=== PATIENT | female | born 1995 | race African-American/Black ===

== ENCOUNTER 2019-09-08 05:00 | Emergency (ER) | payer BC ==
--- NOTE | 2019-09-08 05:24 | EDM.PDOC ---
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 No paper hospital chart available.) History Limitations: Reports: No Limitations - History of Present Illness INITIAL COMMENTS - FREE TEXT/NARRATIVE: The patient was brought to the emergency room via private automobile by her 2 sisters for evaluation of severe pelvic/abdominal cramping consistent with labor. Uterine contractions were about 2-4 minutes apart prior to arrival and started at about 11 PM this evening. She denies any recent intercourse, pelvic injury, etc. with EDC of 01/10/20 both by LMP and OB ultrasound. She has not had any problems with this , including hyperglycemia, hypertension, etc.. The patient did have a fever of about 100 yesterday and was evaluated by the [facility] in [place] with apparent negative influenza and UA evaluations in that facility by her history. She has not had a fever since that time or taken any medications with no known exposure to infection. She denies any gross hematuria, colic, or other UTI symptoms. No recent history of other abdominal pain, heartburn, nausea, diarrhea, melena, gross hematochezia, or any food intolerance, including fatty foods, etc.. The patient also denies any recent cough, wheezing, dyspnea, etc.. Onset: Gradual Onset Date: 09/07/19 Onset Time: 23:00 Duration: Intermittent Location: Reports: Abdomen, Pelvis. Denies: Head, Face, Neck, Chest, Back, Radiates to Quality: Reports: Pressure, Stabbing Severity: Severe Improves with: Reports: None Worsens with: Reports: None Context: Reports: Other (As above). Denies: Sick Contact, Trauma Associated Symptoms: Reports: Fever/Chills (As above). 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 Denies: Arrhythmia, Heart Murmur, Hypertension SPECIAL CERTIFICATE DICTATOR History: Reports: : 1 Para: 0 LMP (Approximate): (Gestational age of 22 2/7 weeks with EDC of as above) Endocrine/Metabolic History: Reports: None. Denies: Diabetes, Gestational, Diabetes, Type II, Hypothyroidism, IDDM - Past Imaging History Past Imaging History: Reports: Ultrasound (Last OB ultrasound on 07/24/19.) Social & Family History - Tobacco Use Smoking Status *Q: Former Smoker Tobacco Use Within Last Twelve Months: Cigarettes Years of Tobacco use: 7 Packs/Tins Daily: 0.5 Packs/Tins Daily Comment: Started smoking at age 16. Stop smoking after discovery of her . Used Tobacco, but Quit: Yes Smoking Cessation Information Provided To Patient: No - Alcohol Use Alcohol Use History: Yes Number of Drinks Per Day Comment: Stop alcohol use in early after discovering she was . Alcohol Use in Last Twelve Months: Yes - Recreational Drug Use Recreational Drug Use: No Drug Use in Last 12 Months: No - Living Situation & Occupation Living situation: Reports: with Significant Other Occupation: Employed ([employer]) ED ROS GENERAL - Review of Systems Review Of Systems: Comprehensive ROS is negative, except as noted in HPI. ED EXAM - Physical Exam Exam: See Below Exam Limited By: No Limitations General Appearance: Alert, WD/WN, No Apparent Distress, Anxious (Moderate) Head: Atraumatic, Normocephalic. No: Facial Swelling, Facial Tenderness, Sinus Tenderness Neck: Normal Inspection, Supple, Non-Tender, Full Range of Motion. No: Lymphadenopathy (L), Lymphadenopathy (R), Thyromegaly Respiratory/Chest: No Respiratory Distress, Lungs Clear, Normal Breath Sounds, No Accessory Muscle Use, Chest Non-Tender. No: Pleural Rub, Retractions Cardiovascular: Normal Peripheral Pulses, Regular Rate, Rhythm, No Edema, No Gallop, No JVD, No Murmur, No Rub. No: Gallop/S3, Gallop/S4, Friction Rub GI/Abdominal Exam: Normal Bowel Sounds, Soft, Non-Tender, No Organomegaly, No Distention, No Abnormal Bruit, No Mass, Pelvis Stable Fundal Height In cm: 22 Rectal Exam: Deferred (Female) Exam: Cervical Dilatation (100%), Cervical Fluid (Amniotic fluid in vaginal vault with no meconium), Enlarged Uterus (Consistent with dates), Vaginal Discharge (Normal with some mild spotting), Other (Vertex, 0 station). No: Adnexal Mass (L), Adnexal Mass (R), Adnexal Tenderness, Cervical Lesions, Cervix Motion Tenderness, Uterine Tenderness Heart Tones: Present Heart Tones per Min: 154 Movement: Active Back Exam: Normal Inspection, Full Range of Motion. No: CVA Tenderness (L), CVA Tenderness (R), Muscle Spasm Extremities: Normal Inspection, Normal Range of Motion, Non-Tender, No Pedal Edema, Normal Capillary Refill. No: Owen's Sign Neurological: Alert, Oriented, CN II-XII Intact, Normal Cognition, Normal Gait, Normal Reflexes, No Motor/Sensory Deficits Psychiatric: Anxious (Moderate). No: Depressed Mood Skin Exam: Warm, Dry, Intact, Normal Color, No Rash, Stud(s) (Right nasal ). No : Diaphoretic Lymphatic: No Adenopathy Course - Vital Signs Text/Narrative:: Vital Signs - 24 hr 09/08/19 09/08/19 09/08/19 05:07 06:15 06:30 Temperature [ 37.1 C Temporal] Pulse, 85 85 86 Peripheral [ Right Pulse Oximetry] Respiratory 12 12 12 Rate Blood Pressure 135/76 114/72 114/72 [Right Upper Arm] O2 Sat by Pulse 98 95 96 Oximetry 09/08/19 09/08/19 09/08/19 06:55 07:11 07:48 Temperature [ 36.7 C 36.6 C Temporal] Pulse, 86 85 105 H Peripheral [ Right Pulse Oximetry] Respiratory 12 12 18 Rate Blood Pressure 109/76 107/69 122/81 [Right Upper Arm] O2 Sat by Pulse 93 L 98 98 Oximetry Last Recorded V/S: Last Vital Signs Temp 36.6 C 09/08/19 07:48 Pulse 105 H 09/08/19 07:48 Resp 18 09/08/19 07:48 BP 122/81 09/08/19 07:48 Pulse Ox 98 09/08/19 07:48 Vital Signs - 24 hr 09/08/19 09/08/19 09/08/19 05:07 06:15 06:30 Temperature [ 37.1 C Temporal] Pulse, 85 85 86 Peripheral [ Right Pulse Oximetry] Respiratory 12 12 12 Rate Blood Pressure 135/76 114/72 114/72 [Right Upper Arm] O2 Sat by Pulse 98 95 96 Oximetry 09/08/19 09/08/19 09/08/19 06:55 07:11 07:48 Temperature [ 36.7 C 36.6 C Temporal] Pulse, 86 85 105 H Peripheral [ Right Pulse Oximetry] Respiratory 12 12 18 Rate Blood Pressure 109/76 107/69 122/81 [Right Upper Arm] O2 Sat by Pulse 93 L 98 98 Oximetry - Orders/Labs/Meds Orders: Active Orders 24 hr Category Date Time Status Peripheral IV Care [RC] . DIRECTED Care 09/08/19 05:25 Active GENITAL CULTURE [MREF] Stat Lab 09/08/19 05:45 Received Magnesium Sulfate/Water [Magnesium Sulfate in Water Med 09/08/19 07:45 Ordered Premix] 20 gm in 500 ml IV TITRATE Magnesium Sulfate/Water [Magnesium Sulfate in Water Med 09/08/19 08:35 Ordered Premix] 2 gm Premix Bag 1 bag IV ONETIME Sodium Chloride 0.9% [Saline Flush] Med 09/08/19 05:25 Active 10 ml FLUSH ASDIRECTED PRN Heart Monitor External [WOMSER] Stat Oth 09/08/19 05:25 Ordered Peripheral IV Insertion Adult [OM.PC] Routine Oth 09/08/19 05:25 Ordered Medication Orders Magnesium Sulfate (Magnesium Sulfate In Water Premix) 20 gm in 500 mls @ 50 mls /hr IV TITRATE SUNDAY Magnesium Sulfate 2 gm/ Premix 50 mls @ 50 mls/hr IV ONETIME ONE Stop: 09/08/19 09:34 Sodium Chloride (Saline Flush) 10 ml FLUSH ASDIRECTED PRN PRN Reason: Keep Vein Open Last Admin: 09/08/19 07:45 Dose: 10 ml Admin: 09/08/19 06:14 Dose: 10 ml Labs: Laboratory Tests 09/08/19 09/08/19 09/08/19 Range/Units 06:15 06:15 06:15 WBC 23.2 H (4.0-10.2) K/uL RBC 3.97 (3.77-5.09) M/uL Hgb 11.5 L (11.7-15.5) g/dL Hct 34.8 (34.0-46.0) % MCV 87.7 (84.0-98.0) fL MCH 29.0 (28.2-33.3) pg MCHC 33.0 (31.7-36.0) g/dL RDW 12.9 (11.2-14.1) % Plt Count 201 (150-350) K/uL Neut % (Auto) 84.5 H (45.0-80.0) % Lymph % (Auto) 7.5 L (10.0-50.0) % Sanborn % (Auto) 7.4 (2.0-14.0) % Eos % (Auto) 0.5 (0.0-5.0) % Baso % (Auto) 0.1 (0.0-2.0) % Neut # (Auto) 19.61 H (1.40-7.00) K/uL Lymph # (Auto) 1.75 (0.50-3.50) K/uL Sanborn # (Auto) 1.71 H (0.00-1.00) K/uL Eos # (Auto) 0.11 (0.00-0.50) K/uL Baso # (Auto) 0.02 (0.00-0.20) K/uL Sodium 136 (136-145) mmol/L Potassium 3.8 (3.5-5.1) mmol/L Chloride 104 (98-107) mmol/L Carbon Dioxide 19.7 L (21.0-32.0) mmol/L BUN 7 (7-18) mg/dL Creatinine 0.58 (0.51-1.17) mg/dL Est Cr Clr Drug Dosing TNP Estimated GFR (MDRD) > 60 mL/min Glucose 84 (74-106) mg/dL Calcium 9.0 (8.5-10.1) mg/dL Magnesium 1.5 L (1.8-2.4) mg/dL Total Bilirubin 0.2 (0.2-1.0) mg/dL AST 13 L (15-37) U/L ALT 13 (12-78) U/L Alkaline Phosphatase 72 (46-116) IU/L Total Protein 7.5 (6.4-8.2) g/dL Albumin 2.6 L (3.4-5.0) g/dL TSH, Ultra Sensitive (0.358-3.740) mIU/mL HCG, Quant mIU/mL Blood Type B POSITIVE 09/08/19 Range/Units 06:15 WBC (4.0-10.2) K/uL RBC (3.77-5.09) M/uL Hgb (11.7-15.5) g/dL Hct (34.0-46.0) % MCV (84.0-98.0) fL MCH (28.2-33.3) pg MCHC (31.7-36.0) g/dL RDW (11.2-14.1) % Plt Count (150-350) K/uL Neut % (Auto) (45.0-80.0) % Lymph % (Auto) (10.0-50.0) % Sanborn % (Auto) (2.0-14.0) % Eos % (Auto) (0.0-5.0) % Baso % (Auto) (0.0-2.0) % Neut # (Auto) (1.40-7.00) K/uL Lymph # (Auto) (0.50-3.50) K/uL Sanborn # (Auto) (0.00-1.00) K/uL Eos # (Auto) (0.00-0.50) K/uL Baso # (Auto) (0.00-0.20) K/uL Sodium (136-145) mmol/L Potassium (3.5-5.1) mmol/L Chloride (98-107) mmol/L Carbon Dioxide (21.0-32.0) mmol/L BUN (7-18) mg/dL Creatinine (0.51-1.17) mg/dL Est Cr Clr Drug Dosing Estimated GFR (MDRD) mL/min Glucose (74-106) mg/dL Calcium (8.5-10.1) mg/dL Magnesium (1.8-2.4) mg/dL Total Bilirubin (0.2-1.0) mg/dL AST (15-37) U/L ALT (12-78) U/L Alkaline Phosphatase (46-116) IU/L Total Protein (6.4-8.2) g/dL Albumin (3.4-5.0) g/dL TSH, Ultra Sensitive 1.360 (0.358-3.740) mIU/mL HCG, Quant 6488 mIU/mL Blood Type Meds: Medications Generic Name Dose Route Start Last Admin Trade Name Freq PRN Reason Stop Dose Admin Magnesium Sulfate 20 gm in 500 mls @ 50 mls/hr 09/08/19 07:45 Magnesium Sulfate In Water Premix IV TITRATE SUNDAY Magnesium Sulfate 2 gm/ Premix 50 mls @ 50 mls/hr 09/08/19 08:35 IV 09/08/19 09:34 ONETIME ONE Sodium Chloride 10 ml 09/08/19 05:25 09/08/19 07:45 Saline Flush FLUSH 10 ml ASDIRECTED PRN Administration Keep Vein Open Discontinued Medications Generic Name Dose Route Start Last Admin Trade Name Freq PRN Reason Stop Dose Admin Ceftriaxone Sodium 2 gm 09/08/19 06:04 09/08/19 06:15 Rocephin IVPUSH 09/08/19 06:05 2 gm ONETIME ONE Administration Dexamethasone 6 mg 09/08/19 06:07 09/08/19 06:12 Dexamethasone IVPUSH 09/08/19 06:08 6 mg ONETIME ONE Administration Lactated Ringer's 1,000 mls @ 999 mls/hr 09/08/19 05:25 Ringers, Lactated IV 09/08/19 06:25 .BOLUS ONE Magnesium Sulfate 100 mls @ 100 mls/hr 09/08/19 05:52 09/08/19 06:34 Magnesium Sulfate In Water Premix IV 09/08/19 06:51 100 mls/hr ONETIME ONE Administration Magnesium Sulfate 2 gm/ Premix 50 mls @ 100 mls/hr 09/08/19 07:26 09/08/19 07 :36 IV 09/08/19 07:55 100 mls/hr ONETIME ONE Administration - Radiology Interpretation Free Text/Narrative:: heart tones average in the 150s with some difficulty maintaining continuous readings secondary to movement. Uterine contractions somewhat variable improved to every 10-12 minutes prior to arrival, although occasional persistent breakthrough uterine contractions. Departure - Departure Time of Disposition: 08:38 Disposition: DC/Tfer to [facility] 02 Condition: Serious Clinical Impression: Spontaneous rupture of amniotic membranes, Threatened , Hypomagnesemia , Hypoalbuminemia, Leukocytosis, Anemia - Discharge Information *PRESCRIPTION DRUG MONITORING PROGRAM REVIEWED*: Not Applicable *COPY OF PRESCRIPTION DRUG MONITORING REPORT IN PATIENT SORAIDA: Not Applicable Forms: ED Department Discharge, Interfacility Transfer DIEGO Sepsis Event Note - Evaluation Sepsis Screening Result: No Definite Risk - Focused Exam Vital Signs: Vital Signs Temp Pulse Resp BP Pulse Ox 09/08/19 07:48 36.6 C 105 H 18 122/81 98 09/08/19 07:11 85 12 107/69 98 09/08/19 06:55 36.7 C 86 12 109/76 93 L 09/08/19 06:30 86 12 114/72 96 09/08/19 06:15 85 12 114/72 95 09/08/19 05:07 37.1 C 85 12 135/76 98 Date Exam was Performed: 09/08/19 Time Exam was Performed: 08:38 - Problem List & Annotations (1) Threatened SNOMED Code(s): 33783813 Code(s): O20.0 - THREATENED Status: Acute Priority: High Onset Date: 09/07/19 Annotation/Comment:: Threatened versus extremely early delivery at 22 2/7 weeks gestation. Note that patient did not have any previous vaginal spotting, etc. prior to arrival to our facility, however shortly after arrival the patient had moderate spontaneous rupture of membranes documented by our ER nurses with additional mild vaginal spotting. Telephone consultation at 05:[address] Trevizo, SPECIAL CERTIFICATE DICTATOR at [facility], and then conference consultation by telephone with all providers at 05:[address] Crawford, military technology manager at the NICU at [facility]. Prognosis is extremely poor for the infant with initial estimation at 30% however recalculated at only 10% survival rate based on the weight, etc.. The patient and her 2 sisters were counseled extensively by me with the other 2 specialists above on the line concerning expected poor outcomes. They are requesting that full treatment measures be initiated. [facility] did try to initiate air transport of the patient to their facility, however secondary to poor weather conditions the NICU ambulance team was sent to this facility. Per recommendations of the above consulting physicians patient will receive 6 g IV of magnesium sulfate followed by 2 g per hour there after by IV infusion. They did recommend 5 million units of IV penicillin and 12 mg of IM betamethasone. Unfortunately, we do not have these medications in house. In lieu of the above medications patient was given 2 g of IV Rocephin by means of IV bolus, 6 mg of dexamethasone IV, and started on a 1 L IV bolus of lactated Ringer's. Pelvic exams were limited based on patient's clinical course in hopes of avoiding delivery in this facility. Subsequent telephone consultation at 07:[address] Crawford and Dr. Deleon, OB who is now on duty, discussing current treatment course and plan. Dr. Crawford did talk with the patient extensively once again concerning the poor prognosis of baby survival, however the patient and her family are still wishing to proceed with patient transfer. Subsequent telephone consultation with Rosalee Torres MD at [facility] in [place], who does agree to accompany the patient in a separate ambulance with boiling house hand accompaniment with the mother in case of early delivery. [facility] ambulance crew to follow behind our ambulance. Note that initial contact tractions of every 24 minutes did decrease to every 1012 minutes prior to transfer with magnesium sulfate therapy as above. Cervical exam immediately prior to patient transfer showed stable findings including 100% effacement, 10 cm dilatation, 0 station, and vertex position. Otherwise physical exam and vital signs stable at time of transfer. (2) Spontaneous rupture of amniotic membranes SNOMED Code(s): 798203777 Code(s): XRZ8953 - Status: Acute Priority: High Onset Date: 09/08/19 Annotation/Comment:: As above (3) Hypoalbuminemia SNOMED Code(s): 917329015 Code(s): E88.09 - [facility] DISORDERS OF PLASMA-PROTEIN METABOLISM, NEC Status: Acute Priority: Medium Onset Date: 09/08/19 Annotation/Comment:: Likely secondary to . Observe for now. Further treatment by accepting providers depending on her clinical course. (4) Hypomagnesemia SNOMED Code(s): 145443325 Code(s): E83.42 - HYPOMAGNESEMIA Status: Acute Priority: High Onset Date: 09/08/19 Annotation/Comment:: Magnesium sulfate initiated as above. (5) Anemia SNOMED Code(s): 549093753 Code(s): D64.9 - ANEMIA, UNSPECIFIED Status: Acute Priority: Medium Annotation/Comment:: Likely normal anemia of with no evidence of acute bleeding, etc. Qualifiers: Anemia type: other cause Other causes of anemia: other cause, not classified Qualified Code(s): D64.89 - Other specified anemias (6) Leukocytosis SNOMED Code(s): 261478565, 543324605 Code(s): D72.829 - ELEVATED WHITE BLOOD CELL COUNT, UNSPECIFIED Status: Acute Priority: High Onset Date: 09/08/19 Annotation/Comment:: Significant leukocytosis as above likely secondary to stress reaction and current /labor. No fever today, although note patient did have a fever with negative minimal workup yesterday at [facility] in [place] as above. IV Rocephin given as above. Continue to observe closely by accepting providers. Note that the patient is a difficult lab draw with insufficient specimen for lactic acid evaluation. No clinical evidence of sepsis, however. Qualifiers: Leukocytosis type: bandemia Qualified Code(s): D72.825 - Bandemia - Problem List Review Problem List Initiated/Reviewed/Updated: Yes - My Orders Last 24 Hours: My Active Orders 09/08/19 05:25 Peripheral IV Care [RC] . DIRECTED Sodium Chloride 0.9% [Saline Flush] 10 ml FLUSH ASDIRECTED PRN Heart Monitor External [WOMSER] Stat Peripheral IV Insertion Adult [OM.PC] Routine 09/08/19 05:45 GENITAL CULTURE [MREF] Stat 09/08/19 07:45 Magnesium Sulfate/Water [Magnesium Sulfate in Water Premix] 20 gm in 500 ml IV TITRATE 09/08/19 08:35 Magnesium Sulfate/Water [Magnesium Sulfate in Water Premix] 2 gm Premix Bag 1 bag IV ONETIME - Assessment/Plan Last 24 Hours: My Active Orders 09/08/19 05:25 Peripheral IV Care [RC] . DIRECTED Sodium Chloride 0.9% [Saline Flush] 10 ml FLUSH ASDIRECTED PRN Heart Monitor External [WOMSER] Stat Peripheral IV Insertion Adult [OM.PC] Routine 09/08/19 05:45 GENITAL CULTURE [MREF] Stat 09/08/19 07:45 Magnesium Sulfate/Water [Magnesium Sulfate in Water Premix] 20 gm in 500 ml IV TITRATE 09/08/19 08:35 Magnesium Sulfate/Water [Magnesium Sulfate in Water Premix] 2 gm Premix Bag 1 bag IV ONETIME Assessment:: As above Plan: As above. Extensive precautions were given to the patient and her family, who are in agreement with the treatment plan. Ambulance transfer with NICU team from [facility].
[2019-09-08] MEDS ORDERED: Lactated Ringers 1,000 ML IV ONE (05:25)
[2019-09-08] MEDS ORDERED: Magnesium Sulfate/Water 100 ML IV ONE (05:52)
[2019-09-08] MEDS ORDERED: cefTRIAXone 2 GM Vial IVPUSH ONE (06:04)
[2019-09-08] MEDS ORDERED: Dexamethasone 10 MG/ML SDV IVPUSH ONE (06:07)
[2019-09-08] MEDS: Sodium Chloride 0.9% 10 ML Syringe FLUSH PRN ×2 (06:14→07:45)
[2019-09-08 07:00] LABS: CHLORIDE,CL 104 mmol/L (98-107); SODIUM,NA 136 mmol/L (136-145)
[2019-09-08] MEDS ORDERED: Magnesium Sulfate/Water 2 GM in Premix Bag 1 BAG IV ONE ×2 (07:26→08:35)
[2019-09-08] MEDS ORDERED: Magnesium Sulfate/Water 20 GM/500 ML BAG IV SCH (07:45)
--- NOTE | 2019-09-08 12:50 | EDM.PDOC ---
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 EMR. No paper hospital chart available.) History Limitations: Reports: No Limitations - History of Present Illness INITIAL COMMENTS - FREE TEXT/NARRATIVE: The patient was brought to the emergency room via private automobile by her 2 sisters for evaluation of severe pelvic/abdominal cramping consistent with labor. Uterine contractions were about 2-4 minutes apart prior to arrival and started at about 11 PM this evening. She denies any recent intercourse, pelvic injury, etc. with EDC of 01/10/20 both by LMP and OB ultrasound. She has not had any problems with this , including hyperglycemia, hypertension, etc.. The patient did have a fever of about 100 yesterday and was evaluated by the [facility] in [place] with apparent negative influenza and UA evaluations in that facility by her history. She has not had a fever since that time or taken any medications with no known exposure to infection. She denies any gross hematuria, colic, or other UTI symptoms. No recent history of other abdominal pain, heartburn, nausea, diarrhea, melena, gross hematochezia, or any food intolerance, including fatty foods, etc.. The patient also denies any recent cough, wheezing, dyspnea, etc.. Onset: Gradual Onset Date: 09/07/19 Onset Time: 23:00 Duration: Intermittent Location: Reports: Abdomen, Pelvis. Denies: Head, Face, Neck, Chest, Back, Radiates to Quality: Reports: Pressure, Stabbing Severity: Severe Improves with: Reports: None Worsens with: Reports: None Context: Reports: Other (As above). Denies: Sick Contact, Trauma Associated Symptoms: Reports: Fever/Chills (As above). Denies: Confusion, Chest Pain, Cough, Diaphoresis, Headaches, Nausea/Vomiting, Rash, Seizure, Shortness of Breath, Weakness Treatments FINANCIAL FOUNDATIONS ASSOCIATE: Reports: Other (see below) (None) Pelvic Pain Score (Numeric/FACES): 10 - Related Data Allergies Allergy/AdvReac Type Severity Reaction Status Date / Time No Known Allergies Allergy Verified 09/08/19 05:05 Home Meds: Home Meds Acetaminophen [Tylenol] 650 mg PO Q4HR PRN 09/08/19 [History] Vits #93/Iron Fum/FA [ Formula Tablet] 1 each PO DAILY [History] Past Medical History Cardiovascular History: Reports: None. 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 Denies: Diabetes, Gestational, Diabetes, Type II, Hypothyroidism, IDDM - Past Imaging History Past Imaging History: Reports: Ultrasound (Last OB ultrasound on 07/24/19.) Social & Family History - Tobacco Use Smoking Status *Q: Former Smoker Years of Tobacco use: 7 Packs/Tins Daily: 0.5 Used Tobacco, but Quit: Yes Month/Year Tobacco Last Used: 06/2019 - Caffeine Use Caffeine Use: Reports: Coffee, Soda, Tea - Recreational Drug Use Recreational Drug Use: No Drug Use in Last 12 Months: No - Living Situation & Occupation Living situation: Reports: with Significant Other Occupation: Employed ([employer] ED ROS GENERAL - Review of Systems Review Of Systems: See Below Constitutional: Reports: No Symptoms HEENT: Reports: No Symptoms Respiratory: Reports: No Symptoms Cardiovascular: Reports: No Symptoms Endocrine: Reports: No Symptoms GI/Abdominal: Reports: No Symptoms : Reports: No Symptoms Musculoskeletal: Reports: No Symptoms Skin: Reports: No Symptoms Neurological: Reports: No Symptoms Psychiatric: Reports: No Symptoms Hematologic/Lymphatic: Reports: No Symptoms Immunologic: Reports: No Symptoms ED EXAM - Physical Exam Exam: See Below Exam Limited By: No Limitations General Appearance: Alert, Mild Distress Head: Normocephalic Respiratory/Chest: No Respiratory Distress Cardiovascular: Regular Rate, Rhythm Fundal Height In cm: 22 (Female) Exam: Other (per Dr. Chacon) Heart Tones: Present Heart Tones per Min: 171 Movement: Active Back Exam: Normal Inspection Extremities: Normal Inspection Neurological: Alert, Normal Cognition Psychiatric: Normal Affect, Anxious, Tearful (at times) Skin Exam: Warm, Dry, Intact, No Rash Course - Vital Signs Last Recorded V/S: Last Vital Signs Temp 97.9 F 09/08/19 07:48 Pulse 105 H 09/08/19 07:48 Resp 18 09/08/19 07:48 BP 122/81 09/08/19 07:48 Pulse Ox 98 09/08/19 07:48 - Orders/Labs/Meds Orders: Active Orders 24 hr Category Date Time Status Peripheral IV Care [RC] . DIRECTED Care 09/08/19 05:25 Active GENITAL CULTURE [MREF] Stat Lab 09/08/19 05:45 Received Magnesium Sulfate/Water [Magnesium Sulfate in Water Med 09/08/19 07:45 Active Premix] 20 gm in 500 ml IV TITRATE Sodium Chloride 0.9% [Saline Flush] Med 09/08/19 05:25 Active 10 ml FLUSH ASDIRECTED PRN Heart Monitor External [WOMSER] Stat Oth 09/08/19 05:25 Ordered Peripheral IV Insertion Adult [OM.PC] Routine Oth 09/08/19 05:25 Ordered Medication Orders Magnesium Sulfate (Magnesium Sulfate In Water Premix) 20 gm in 500 mls @ 50 mls /hr IV TITRATE SUNDAY Sodium Chloride (Saline Flush) 10 ml FLUSH ASDIRECTED PRN PRN Reason: Keep Vein Open Last Admin: 09/08/19 07:45 Dose: 10 ml Admin: 09/08/19 06:14 Dose: 10 ml Labs: Laboratory Tests 09/08/19 09/08/19 09/08/19 Range/Units 06:15 06:15 06:15 WBC 23.2 H (4.0-10.2) K/uL RBC 3.97 (3.77-5.09) M/uL Hgb 11.5 L (11.7-15.5) g/dL Hct 34.8 (34.0-46.0) % MCV 87.7 (84.0-98.0) fL MCH 29.0 (28.2-33.3) pg MCHC 33.0 (31.7-36.0) g/dL RDW 12.9 (11.2-14.1) % Plt Count 201 (150-350) K/uL Neut % (Auto) 84.5 H (45.0-80.0) % Lymph % (Auto) 7.5 L (10.0-50.0) % Gem % (Auto) 7.4 (2.0-14.0) % Eos % (Auto) 0.5 (0.0-5.0) % Baso % (Auto) 0.1 (0.0-2.0) % Neut # (Auto) 19.61 H (1.40-7.00) K/uL Lymph # (Auto) 1.75 (0.50-3.50) K/uL Gem # (Auto) 1.71 H (0.00-1.00) K/uL Eos # (Auto) 0.11 (0.00-0.50) K/uL Baso # (Auto) 0.02 (0.00-0.20) K/uL Sodium 136 (136-145) mmol/L Potassium 3.8 (3.5-5.1) mmol/L Chloride 104 (98-107) mmol/L Carbon Dioxide 19.7 L (21.0-32.0) mmol/L BUN 7 (7-18) mg/dL Creatinine 0.58 (0.51-1.17) mg/dL Est Cr Clr Drug Dosing TNP Estimated GFR (MDRD) > 60 mL/min Glucose 84 (74-106) mg/dL Calcium 9.0 (8.5-10.1) mg/dL Magnesium 1.5 L (1.8-2.4) mg/dL Total Bilirubin 0.2 (0.2-1.0) mg/dL AST 13 L (15-37) U/L ALT 13 (12-78) U/L Alkaline Phosphatase 72 (46-116) IU/L Total Protein 7.5 (6.4-8.2) g/dL Albumin 2.6 L (3.4-5.0) g/dL TSH, Ultra Sensitive (0.358-3.740) mIU/mL HCG, Quant mIU/mL Blood Type B POSITIVE 09/08/19 Range/Units 06:15 WBC (4.0-10.2) K/uL RBC (3.77-5.09) M/uL Hgb (11.7-15.5) g/dL Hct (34.0-46.0) % MCV (84.0-98.0) fL MCH (28.2-33.3) pg MCHC (31.7-36.0) g/dL RDW (11.2-14.1) % Plt Count (150-350) K/uL Neut % (Auto) (45.0-80.0) % Lymph % (Auto) (10.0-50.0) % Gem % (Auto) (2.0-14.0) % Eos % (Auto) (0.0-5.0) % Baso % (Auto) (0.0-2.0) % Neut # (Auto) (1.40-7.00) K/uL Lymph # (Auto) (0.50-3.50) K/uL Gem # (Auto) (0.00-1.00) K/uL Eos # (Auto) (0.00-0.50) K/uL Baso # (Auto) (0.00-0.20) K/uL Sodium (136-145) mmol/L Potassium (3.5-5.1) mmol/L Chloride (98-107) mmol/L Carbon Dioxide (21.0-32.0) mmol/L BUN (7-18) mg/dL Creatinine (0.51-1.17) mg/dL Est Cr Clr Drug Dosing Estimated GFR (MDRD) mL/min Glucose (74-106) mg/dL Calcium (8.5-10.1) mg/dL Magnesium (1.8-2.4) mg/dL Total Bilirubin (0.2-1.0) mg/dL AST (15-37) U/L ALT (12-78) U/L Alkaline Phosphatase (46-116) IU/L Total Protein (6.4-8.2) g/dL Albumin (3.4-5.0) g/dL TSH, Ultra Sensitive 1.360 (0.358-3.740) mIU/mL HCG, Quant 6488 mIU/mL Blood Type Meds: Medications Generic Name Dose Route Start Last Admin Trade Name Freq PRN Reason Stop Dose Admin Magnesium Sulfate 20 gm in 500 mls @ 50 mls/hr 09/08/19 07:45 Magnesium Sulfate In Water Premix IV TITRATE SUNDAY Sodium Chloride 10 ml 09/08/19 05:25 09/08/19 07:45 Saline Flush FLUSH 10 ml ASDIRECTED PRN Administration Keep Vein Open Discontinued Medications Generic Name Dose Route Start Last Admin Trade Name Freq PRN Reason Stop Dose Admin Ceftriaxone Sodium 2 gm 09/08/19 06:04 09/08/19 06:15 Rocephin IVPUSH 09/08/19 06:05 2 gm ONETIME ONE Administration Dexamethasone 6 mg 09/08/19 06:07 09/08/19 06:12 Dexamethasone IVPUSH 09/08/19 06:08 6 mg ONETIME ONE Administration Lactated Ringer's 1,000 mls @ 999 mls/hr 09/08/19 05:25 Ringers, Lactated IV 09/08/19 06:25 .BOLUS ONE Magnesium Sulfate 100 mls @ 100 mls/hr 09/08/19 05:52 09/08/19 06:34 Magnesium Sulfate In Water Premix IV 09/08/19 06:51 100 mls/hr ONETIME ONE Administration Magnesium Sulfate 2 gm/ Premix 50 mls @ 100 mls/hr 09/08/19 07:26 09/08/19 07 :36 IV 09/08/19 07:55 100 mls/hr ONETIME ONE Administration Magnesium Sulfate 2 gm/ Premix 50 mls @ 50 mls/hr 09/08/19 08:35 IV 09/08/19 09:34 ONETIME ONE Departure - Departure Time of Disposition: 07:57 Disposition: DC/Tfer to [facility] 02 Condition: Serious Clinical Impression: Spontaneous rupture of amniotic membranes, Threatened , Hypomagnesemia , Hypoalbuminemia, Leukocytosis, Anemia, Intrauterine - Discharge Information *PRESCRIPTION DRUG MONITORING PROGRAM REVIEWED*: Not Applicable *COPY OF PRESCRIPTION DRUG MONITORING REPORT IN PATIENT SORAIDA: Not Applicable Referrals: PCP,Unknown [Primary Care Provider] - Forms: ED Department Discharge, Interfacility Transfer EMTALA Critical Care Note - Critical Care Note Total Time (mins): 123 Sepsis Event Note - Evaluation Sepsis Screening Result: No Definite Risk - Focused Exam Vital Signs: Vital Signs Temp Pulse Resp BP Pulse Ox 09/08/19 07:48 97.9 F 105 H 18 122/81 98 09/08/19 07:11 85 12 107/69 98 09/08/19 06:55 98.1 F 86 12 109/76 93 L 09/08/19 06:30 86 12 114/72 96 09/08/19 06:15 85 12 114/72 95 09/08/19 05:07 98.7 F 85 12 135/76 98 Date Exam was Performed: 09/08/19 Time Exam was Performed: 13:31 - Problem List & Annotations (1) labor in second trimester SNOMED Code(s): 1157841 Code(s): O60.02 - LABOR WITHOUT DELIVERY, SECOND TRIMESTER Status: Acute Priority: High Current Visit: Yes Qualifiers: labor delivery status: without delivery Qualified Code(s): O60.02 - labor without delivery, second trimester (2) PROM with onset of labor within 24 hours of rupture SNOMED Code(s): 901899986 Code(s): O42.00 - NEDA ROM, ONSET LABOR W/N 24 HR OF RUPT, UNSP WEEKS OF GEST Status: Acute Priority: High Current Visit: Yes Qualifiers: PROM gestational age: -second trimester Qualified Code(s): O42.012 - premature rupture of membranes, onset of labor within 24 hours of rupture, second trimester (3) Spontaneous rupture of amniotic membranes SNOMED Code(s): 652579923 Code(s): XEV2704 - Status: Acute Priority: High Current Visit: No Onset Date: 09/08/19 Annotation/Comment:: As above (4) Intrauterine SNOMED Code(s): 36340939 Code(s): Z34.90 - ENCNTR FOR SUPRVSN OF NORMAL , UNSP, UNSP TRIMESTER Status: Acute Current Visit: Yes (5) Threatened miscarriage SNOMED Code(s): 24879021 Code(s): O20.0 - THREATENED Status: Acute Priority: High Current Visit: Yes (6) Anemia SNOMED Code(s): 067016256 Code(s): D64.9 - ANEMIA, UNSPECIFIED Status: Acute Priority: Medium Current Visit: No Annotation/Comment:: Likely normal anemia of with no evidence of acute bleeding, etc. Qualifiers: Anemia type: other cause Other causes of anemia: other cause, not classified Qualified Code(s): D64.89 - Other specified anemias (7) Hypoalbuminemia SNOMED Code(s): 348862237 Code(s): E88.09 - OTH DISORDERS OF PLASMA-PROTEIN METABOLISM, NEC Status: Acute Priority: Medium Current Visit: No Onset Date: 09/08/19 Annotation /Comment:: Likely secondary to . Observe for now. Further treatment by accepting providers depending on her clinical course. (8) Hypomagnesemia SNOMED Code(s): 686904544 Code(s): E83.42 - HYPOMAGNESEMIA Status: Acute Priority: High Current Visit: No Onset Date: 09/08/19 Annotation/Comment:: Magnesium sulfate initiated as above. (9) Leukocytosis SNOMED Code(s): 853171516, 300297644 Code(s): D72.829 - ELEVATED WHITE BLOOD CELL COUNT, UNSPECIFIED Status: Acute Priority: High Current Visit: No Onset Date: 09/08/19 Annotation/ Comment:: Significant leukocytosis as above likely secondary to stress reaction and current /labor. No fever today, although note patient did have a fever with negative minimal workup yesterday at [facility] in [place] as above. IV Rocephin given as above. Continue to observe closely by accepting providers. Note that the patient is a difficult lab draw with insufficient specimen for lactic acid evaluation. No clinical evidence of sepsis, however. Qualifiers: Leukocytosis type: bandemia Qualified Code(s): D72.825 - Bandemia - Problem List Review Problem List Initiated/Reviewed/Updated: Yes - Assessment/Plan Plan: 09/08/2019 Tamica Chacon called me at home to request me to ride in ambulance transfer of a 23 yo [id number] ~22 week intra-uterine EDC 01-10-2020 presented to the [facility] ER with PROM and pre term labor contractions ~2-[address] Chacon had already consulted with [facility] specialists (see his notes). Per Dr. Chacon's exam patient was 10cm dilated, 100% effacement and at 0 station. Due to possibility of eminent delivery and significant prematurity, medical opinion that I accompany the patient in the ambulance ride to [facility]. The patient , myself, workforce investment act career manager, service parts driver and RN from [place] [facility] team loaded into the ambulance at 07:57. Critical care time 123 minutes in the ambulance arriving at [facility] maternity unit and transferring medical care to the [place]-obstetrical team at 10:00. During the transfer the patient was monitored with vital signs (blood pressure, pulse) and on telemetry showing normal sinus rhythm at a rate of ~85. She was on the magnesium IV infusion. Her uterine contractions initially at 5 minutes, then 7 minutes, then 11 minutes, then 11 minutes. She had no urge to push and no pain/pressure in her bottom area. heart tones 172. Per mom baby active and moving. She was transferred into the medical care of the [facility] obstetrical team stable condition at this time. Dr. Chacon had obtained GBS culture prior to the IV antibiotics and team was told this result will be sent to them as soon as it is available.
== END 2019-09-08 08:40 ==
LOC: LL.ED 05:00
DX: O20.0 Threatened abortion (principal); O41.8X20 Other specified disorders of amniotic fluid and membranes, second trimester, not applicable or unspecified; O99.282 Endocrine, nutritional and metabolic diseases complicating pregnancy, second trimester; E83.42 Hypomagnesemia; E88.09 Other disorders of plasma-protein metabolism, not elsewhere classified; O99.012 Anemia complicating pregnancy, second trimester; O99.112 Other diseases of the blood and blood-forming organs and certain disorders involving the immune mechanism complicating pregnancy, second trimester; D72.829 Elevated white blood cell count, unspecified; O42.00 Premature rupture of membranes, onset of labor within 24 hours of rupture, unspecified weeks of gestation; O60.02 Preterm labor without delivery, second trimester; Z87.891 Personal history of nicotine dependence
CPT/HCPCS: 36415; 80053; 83735; 84443; 84702; 85025; 86900; 86901; 87070; 87205; 96365; 96366; 96375; 99285-25; J0696; J1100; J3475

== ENCOUNTER 2020-02-06 23:55 | Emergency (ER) | payer BC, MEDICAID ==
--- NOTE | 2020-02-07 00:13 | EDM.PDOC ---
ED HPI GENERAL MEDICAL PROBLEM - General Chief Complaint: Gastrointestinal Problem Stated Complaint: CRAMPS, N/V Time Seen by Provider: 02/07/20 00:09 Source of Information: Reports: Patient History Limitations: Reports: No Limitations - History of Present Illness INITIAL COMMENTS - FREE TEXT/NARRATIVE: Pt presents to ER with uterine cramps Has been having these intermittently since she delivered her baby in September Onset: Gradual Duration: Intermittent Location: Reports: Abdomen Severity: Moderate - Related Data Allergies Allergy/AdvReac Type Severity Reaction Status Date / Time No Known Allergies Allergy Verified 09/08/19 05:05 Home Meds: Home Meds Acetaminophen [Tylenol] 650 mg PO Q4HR PRN 09/08/19 [History] Vits #93/Iron Fum/FA [ Formula Tablet] 1 each PO DAILY 09/08/19 [History] Past Medical History Cardiovascular History: Reports: None. 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 Denies: Diabetes, Gestational, Diabetes, Type II, Hypothyroidism, IDDM - Past Imaging History Past Imaging History: Reports: Ultrasound (Last OB ultrasound on 07/24/19.) Social & Family History - Caffeine Use Caffeine Use: Reports: Coffee, Soda, Tea - Living Situation & Occupation Living situation: Reports: with Significant Other Occupation: Employed ([employer]) ED ROS GENERAL - Review of Systems Review Of Systems: See Below : Reports: Other (Uterine cramps) ED EXAM, GI/ABD - Physical Exam Exam: See Below (Female) Exam: Other (Tender in low abdomen with palpation) Course - Vital Signs Last Recorded V/S: Last Vital Signs Temp 97 F 02/06/20 23:55 Pulse 89 02/06/20 23:55 Resp 16 02/06/20 23:55 BP 108/65 02/06/20 23:55 Pulse Ox 100 02/06/20 23:55 - Re-Assessments/Exams Free Text/Narrative Re-Assessment/Exam: 02/07/20 00:12 Pt stable in ER Departure - Departure Time of Disposition: 00:30 Disposition: Home, Self-Care 01 Clinical Impression: Uterine cramping - Discharge Information *PRESCRIPTION DRUG MONITORING PROGRAM REVIEWED*: Not Applicable *COPY OF PRESCRIPTION DRUG MONITORING REPORT IN PATIENT SORAIDA: Not Applicable Instructions: Pelvic Pain, Female, [id number] Referrals: PCP,None [Primary Care Provider] - Additional Instructions: Tylenol or Motrin as needed Follow up in clinic Sepsis Event Note (ED) - Evaluation Sepsis Screening Result: No Definite Risk - Focused Exam Vital Signs: Vital Signs Temp Pulse Resp BP Pulse Ox 02/06/20 23:55 97 F 89 16 108/65 100
== END 2020-02-07 00:20 | disposition home or self-care (01) ==
LOC: LL.ED 23:55
DX: N94.89 Other specified conditions associated with female genital organs and menstrual cycle (principal)
CPT/HCPCS: 99282; 99283

== ENCOUNTER 2022-09-15 07:30 | Emergency (ER) | payer BC, MEDICAID ==
[2022-09-15] MEDS ORDERED: Sodium Chloride 0.9% 10 ML Syringe FLUSH PRN (07:56)
[2022-09-15] MEDS: Sodium Chloride 0.9% 1,000 ML IV SCH (08:10)
[2022-09-15 08:35] LABS: ANION GAP 14.7 meq/L (7-15); CHLORIDE,CL 105 mmol/L (98-107); ESTIMATED GFR 85 mL/min (>=60); SODIUM,NA 144 mmol/L (136-145)
[2022-09-15] MEDS: Sodium Chloride 0.9% 1,000 ML IV ONE (10:00)
== END 2022-09-15 11:00 | disposition left against medical advice (07) ==
LOC: LL.ED 07:30
DX: F10.120 Alcohol abuse with intoxication, uncomplicated (principal); I10 Essential (primary) hypertension; Y90.1 Blood alcohol level of 20-39 mg/100 ml
CPT/HCPCS: 36415; 80053; 80307; 83735; 85025; 96360; 96361; 99284-25; J7030

== ENCOUNTER 2023-06-30 16:29 | Emergency (ER) | payer SELFPAY ==
[2023-06-30 17:24] LABS: APPEARANCE,URINE CLOUDY; BILIRUBIN,URINE NEGATIVE (NEGATIVE); COLOR,URINE LIGHT YELLOW; GLUCOSE,URINE NEGATIVE (NEGATIVE); KETONES,URINE 80 mg/dL (NEGATIVE); LEUKOCYTE ESTERASE,URINE NEGATIVE (NEGATIVE); NITRITE,URINE POSITIVE (NEGATIVE); OCCULT BLOOD,URINE TRACE-INTACT (NEGATIVE); PH,URINE 5.5 (5.0-9.0); PROTEIN,URINE 100 mg/dL (NEGATIVE); UROBILINOGEN,URINE 0.2 E.U./dL (0.2-1.0)
[2023-06-30 17:32] LABS: AMPHETAMINES SCREEN, URINE NEGATIVE (NEGATIVE); BARBITURATE SCREEN,URINE NEGATIVE (NEGATIVE); BENZODIAZEPINES SCREEN,URINE NEGATIVE (NEGATIVE); COCAINE METABOLITES,URINE NEGATIVE (NEGATIVE); EDDP,URINE SCREEN NEGATIVE (NEGATIVE); METHAMPHETAMINES SCREEN, URINE NEGATIVE (NEGATIVE); TCA SCREEN,URINE NEGATIVE (NEGATIVE); THC SCREEN,URINE 50 NG/ML NEGATIVE (NEGATIVE)
[2023-06-30 17:38] LABS: BUPRENORPHINE SCREEN,URINE NEGATIVE (NEGATIVE); OXYCODONE SCREEN,URINE NEGATIVE (NEGATIVE)
[2023-06-30 17:39] LABS: AMORPHOUS SEDIMENT,URINE FEW /HPF (0/HPF); BACTERIA,URINE FEW /HPF (NONE TO FEW); RBC,URINE 0-5 /HPF; WBC,URINE 0-5 /HPF
[2023-06-30 18:38] LABS: BASOPHILS ABSOLUTE AUTO 0.06 K/uL (0.00-0.20); BASOPHILS PERCENT AUTO 1.2 % (0.0-2.0); EOSINOPHILS ABSOLUTE AUTO 0.05 K/uL (0.00-0.50); HEMATOCRIT 38.7 % (34.0-46.0); HEMOGLOBIN 12.8 g/dL (11.7-15.5); LYMPHOCYTES ABSOLUTE AUTO 1.53 K/uL (0.50-3.50); LYMPHOCYTES PERCENT AUTO 30.6 % (10.0-50.0); MEAN CORPUSCULAR HEMOGLOBIN 31.9 pg (28.2-33.3); MEAN CORPUSCULAR HGB CONC 33.1 g/dL (31.7-36.0); MEAN CORPUSCULAR VOLUME 96.5 fL (84.0-98.0); MONOCYTES ABSOLUTE AUTO 0.16 K/uL (0.00-1.00); MONOCYTES PERCENT AUTO 3.2 % (2.0-14.0); PLATELET COUNT,PLT 308 K/uL (150-350); RED BLOOD CELL COUNT 4.01 M/uL (3.77-5.09); RED CELL DISTRIBUTION WIDTH 12.9 % (11.2-14.1)
[2023-06-30 18:49] LABS: PROTHROMBIN TIME 9.6 SEC (9.0-11.1)
[2023-06-30 18:59] LABS: ALBUMIN 3.6 g/dL (3.4-5.0); ANION GAP 23.6 meq/L (7-15); BILIRUBIN TOTAL 0.5 mg/dL (0.2-1.0); CARBON DIOXIDE,CO2 20.3 mmol/L (21.0-32.0); CREATININE 0.79 mg/dL (0.51-1.17); EST CRCL DRUG DOSING (CG) 98.36 mL/min; ETHANOL BLOOD MEDICAL 0.396 g/dL (0.000-0.080); POTASSIUM,K 3.9 mmol/L (3.5-5.1); PROTEIN TOTAL,TP 8.3 g/dL (6.4-8.2)
[2023-06-30] MEDS ORDERED: Take Home: Nitrofurantoin Monohydrate/Macrocrystalline 100 MG, 6 Cap Pack PO ONE (19:12)
== END 2023-06-30 19:30 | disposition home or self-care (01) ==
LOC: LL.ED 16:29
DX: N30.01 Acute cystitis with hematuria (principal); F10.120 Alcohol abuse with intoxication, uncomplicated
CPT/HCPCS: 36415; 80053; 80305; 80307; 81001; 81025; 85025; 85610; 87086; 99284; A9270